=== PATIENT | female | born 1980 | race Caucasian/White ===

== ENCOUNTER 2023-02-12 19:10 | Emergency (ER) | payer SELFPAY ==
[~2023-02-12] VITALS: Ht 172.7 cm; Wt 82.0 kg
[2023-02-12 19:16] VITALS: BP 147/95
[2023-02-12] MEDS ORDERED: ACETAMINOPHEN 325MG TABLET PO ONE (20:00)
[2023-02-13 01:03] LABS: HEMATOCRIT 40.1 % (36.0-48.0); HEMOGLOBIN 13.3 g/dL (12.0-16.0); MEAN CORPUSCULAR VOLUME 93.5 fL (81.0-99.0); PLATELET 270 x1000/uL (130-400); RED BLOOD CELL COUNT 4.29 mill/uL (4.2-5.4); RED CELL DISTRIBUTION WIDTH 14.2 % (11.6-14.6)
[2023-02-13 01:06] LABS: CLARITY URINE CLEAR (CLEAR); COLOR URINE YELLOW (YELLOW); KETONES URINE NEGATIVE (NEGATIVE); LEUKOCYTE ESTERASE URINE TRACE (NEGATIVE); NITRITE URINE NEGATIVE (NEGATIVE); OCCULT BLOOD URINE NEGATIVE (NEGATIVE); PH URINE 7.5 (4.5-8.0); PROTEIN URINE NEGATIVE (NEGATIVE); SPECIFIC GRAVITY URINE 1.006 (1.005-1.030); UROBILINOGEN URINE 0.2 E.U./dL (0.2-1.0)
[2023-02-13 01:11] LABS: UCG SCREEN NEGATIVE
[2023-02-13 01:13] LABS: CHLORIDE 110 mEq/L (98-107)
[2023-02-13] MEDS ORDERED: CIPR500T5 MT (02:03)
== END 2023-02-13 02:30 | disposition home or self-care (01) ==
LOC: ER 19:10
DX: N39.0 Urinary tract infection, site not specified (principal); M79.604 Pain in right leg; M79.605 Pain in left leg; R30.0 Dysuria; Z88.0 Allergy status to penicillin
CPT/HCPCS: 36415; 80053; 81003; 81025; 85027; 99283